=== PATIENT | female | born 1975 | race Caucasian/White ===

== ENCOUNTER 2020-11-23 17:28 | Emergency (ER) | payer BC ==
[2020-11-23] MEDS ORDERED: diphenhydrAMINE 50 MG/ML VIAL ONE (18:00)
[2020-11-23] MEDS ORDERED: Ketorolac Tromethamine 30 MG/ML VIAL ONE (18:00)
[2020-11-23] MEDS ORDERED: Metoclopramide HCl 10 MG/2 ML VIAL ONE (18:00)
== END 2020-11-23 19:47 | disposition home or self-care (01) ==
LOC: ERS 17:28
DX: T63.461A Toxic effect of venom of wasps, accidental (unintentional), initial encounter (principal); R51.9 Headache, unspecified; E03.9 Hypothyroidism, unspecified
CPT/HCPCS: 96365; 96375; J1200; J1885; J2765